=== PATIENT | female | born 1990 | race Caucasian/White ===

== ENCOUNTER 2017-03-20 23:25 | Inpatient (IN) | payer BC ==
[~2017-03-20] VITALS: Ht 162.6 cm; Wt 73.0 kg
[~2017-03-20 23:25] MED LIST: PRENATAL TABLE1 EAC3 PO
[2017-03-20 23:41] VITALS: BP 108/73
[2017-03-21] VITALS (16 sets, daily range): BP systolic 87–114; BP diastolic 50–71
[2017-03-21 02:46] LABS: EOSINOPHIL (%) 0.2 % (0-5); HEMATOCRIT 30.9 % (36.0-46.0); IMMATURE GRANULOCYTE (%) 1.2 % (0.0-0.7); IMMATURE GRANULOCYTE COUNT 0.2 K/uL; INSTRUMENT ABS NEUTROPHIL CT 10.1 K/uL; LYMPHOCYTE COUNT 2.1 K/uL (1.0-2.8); MCH 29.9 PG (29.0-34.0); MCHC 33.3 G/DL (30.0-36.0); MCV 89.8 FL (83-99); MEAN PLAT.VOLUME 10.2 uM^3 (9.5-12.4); MONOCYTE (%) 5.4 % (3-12); MONOCYTE COUNT 0.7 K/uL (0-0.8); NEUTROPHIL (%) 77.1 % (45-76); NEUTROPHIL COUNT 10.1 K/uL (1.8-6.4); PLATELET COUNT 199 K/uL (156-360); RBC DIS.WIDTH-CV 12.6 % (11.8-14.6); RBC DIS.WIDTH-SD 41.3 % (39-53); RED BLOOD COUNT 3.44 M/uL (3.80-5.20); WHITE BLOOD COUNT 13.1 K/uL (4.1-10.2)
[2017-03-21] MEDS ORDERED: MOTRIN800 MG PO (16:01)
[2017-03-22 06:56] LABS: EOSINOPHIL (%) 0.2 % (0-5); HEMATOCRIT 30.4 % (36.0-46.0); IMMATURE GRANULOCYTE COUNT 0.1 K/uL; INSTRUMENT ABS NEUTROPHIL CT 9.7 K/uL; LYMPHOCYTE COUNT 1.7 K/uL (1.0-2.8); MCH 29.5 PG (29.0-34.0); MCHC 33.2 G/DL (30.0-36.0); MCV 88.9 FL (83-99); MEAN PLAT.VOLUME 10.4 uM^3 (9.5-12.4); MONOCYTE (%) 6.3 % (3-12); MONOCYTE COUNT 0.8 K/uL (0-0.8); NEUTROPHIL (%) 78.5 % (45-76); NEUTROPHIL COUNT 9.7 K/uL (1.8-6.4); PLATELET COUNT 200 K/uL (156-360); RBC DIS.WIDTH-CV 12.6 % (11.8-14.6); RBC DIS.WIDTH-SD 40.8 % (39-53); RED BLOOD COUNT 3.42 M/uL (3.80-5.20); WHITE BLOOD COUNT 12.3 K/uL (4.1-10.2)
[2017-03-22 08:06] VITALS: BP 95/56
[2017-03-22 14:42] VITALS: BP 92/64
[2017-03-22 23:03] VITALS: BP 104/55
[2017-03-23 08:24] VITALS: BP 94/50
== END 2017-03-23 17:00 | disposition home or self-care (01) | DRG 775 ==
LOC: LDRP-OP 23:25 → 2WEST 23:26 → LDRP-OP 04-28 00:09
PROVIDERS: Midwife; Nurse Practitioner
DX: O99.02 Anemia complicating childbirth (principal); O63.1 Prolonged second stage (of labor); O99.824 Streptococcus B carrier state complicating childbirth; O62.1 Secondary uterine inertia; Z3A.39 39 weeks gestation of pregnancy; Z37.0 Single live birth; M25.559 Pain in unspecified hip
CPT/HCPCS: 85025; G0378; J7120